=== PATIENT | female | born 1955 | race Caucasian/White ===

== ENCOUNTER 2016-11-09 07:43 | Emergency (ER) | payer BC ==
[2016-11-09 07:36] LABS: URINE SOURCE CLEAN CATCH
[2016-11-09 07:39] LABS: URINE APPEARANCE CLEAR; URINE BILIRUBIN NEG (NEG); URINE BLOOD 1+ (NEG); URINE COLOR ORANGE; URINE KETONE NEG (NEG); URINE LEUKOCYTE ESTERASE TRACE (NEG); URINE NITRATE POS (NEG); URINE PH 5.5 (5-8); URINE PROTEIN 1+ (NEG)
[~2016-11-09 07:43] MED LIST: AMITRYPTYLINE PO; CALCITRATE + V1 EACH PO; DULOXETINE HCL60 MG PO; EFFEXOR PO; LIPITOR PO; PRILOSEC PO; PROPRANOLOL PO; TOPAMAX PO; TOPROL XL100 MG PO; ULTRAM PO; ZANAFLEX4 M1 PO
[2016-11-09 07:45] LABS: MICRO INDICATED? YES; URINE GLUCOSE 50 MG/DL (NORM)
[2016-11-09 07:50] LABS: CULTURE INDICATED? YES; URINE BACTERIA 1+ (NEG); URINE SQUAMOUS EPITHELIAL CELL MANY /[HPF]
[2016-11-09] MEDS ORDERED: MACROBID100 M1 (08:29)
[2016-11-09] MEDS ORDERED: PYRIDIUM (08:29)
== END 2016-11-09 08:29 | disposition home or self-care (01) ==
LOC: SED 07:43
PROVIDERS: Emergency Medicine
DX: N39.0 Urinary tract infection, site not specified (principal); R31.9 Hematuria, unspecified; Z86.73 Personal history of transient ischemic attack (TIA), and cerebral infarction without residual deficits; K21.9 Gastro-esophageal reflux disease without esophagitis; Z90.710 Acquired absence of both cervix and uterus; F17.200 Nicotine dependence, unspecified, uncomplicated; Z88.8 Allergy status to other drugs, medicaments and biological substances; Z88.0 Allergy status to penicillin; Z88.1 Allergy status to other antibiotic agents; Z79.899 Other long term (current) drug therapy
CPT/HCPCS: 81003; 87086; 87088; 87186; 99283